=== PATIENT | male | born 1995 | race Asian ===

== ENCOUNTER 2023-05-02 12:08 | Emergency (ER) | payer OTHER ==
[2023-05-02 12:24] VITALS: BP 136/69; PULSE 86; RESP 18; TEMP 97.7; BMI 24.7
[2023-05-02] MEDS ORDERED: IBUPROFEN 600 MG TABLET (FP) PO ONE ×2 (13:23→13:28)
== END 2023-05-02 14:17 | disposition home or self-care (01) ==
LOC: JERFT 12:08
CPT/HCPCS: 72100-TC-FY; 73521-TC-FY